=== PATIENT | female | born 1995 | race Two or more races ===

== ENCOUNTER 2025-07-07 13:12 | Emergency (ER) | payer MEDICAID, SELFPAY ==
--- NOTE | 2025-07-07 | XR_ITS ---
Examination: MRI lumbar spine without contrast Date and time of exam: July 07, 2025, 1640 hrs. Indications: Lower back pain beginning 3 days ago extending to the legs with numbness in lower extremities Technique: Multiple MRI axial and sagittal sections lumbar spine. Sagittal T2-weighted images, TR 3500, TE 118 T1 weighted transverse sections, TR 688 T8.5, T2-weighted sagittal sections T1 weighted sagittal sections TR 621, TE 30 T2 axial sections, TR 4, 190, TE 84. Findings: Adequate alignment lumbar vertebral bodies on the lateral view No lumbar fracture. Disc desiccation L4-L5. No spondylolisthesis. L5-S1 no disc protrusion L4-L5 9 mm right paracentral disc protrusion displacing the right L5 nerve root and contiguous with the left L5 nerve root, indenting the thecal sac More cephalad levels unremarkable Chronic mild wedging T12, T11, T10. Impression: L4-L5 large, 9 mm, right paracentral disc protrusion displacing the right L5 nerve root and contiguous with the left L5 nerve root
[2025-07-07 13:27] VITALS: BP 144/97; PULSE 87; RESP 20; TEMP 36.8; O2SAT 98
--- NOTE | 2025-07-07 13:33 | PD.EDRME ---
Rapid Medical Screening Exam E Arrival date/time: 07/07/25 13:12 29-year-old female with no known medical history presents to the emergency room with a chief complaint of lumbar back pain x 3 days. Patient states she is having numbness to her lower extremities, worsening pain when ambulating, and will wake up soiled with urine overnight I have greeted and performed a focused initial assessment of this patient. A comprehensive ED assessment and evaluation of the patient, analysis of all test results, and completion of the medical decision making process will be conducted by additional ED providers. Chief Complaint: Back Pain/Injury Time Seen by Provider: 07/07/25 13:24 Vital signs: Vital Signs Temperature 98.3 F 07/07/25 13:27 Pulse Rate 87 07/07/25 13:27 Respiratory Rate 20 07/07/25 13:27 Blood Pressure 144/97 H 07/07/25 13:27 Pulse Oximetry (%) 98 07/07/25 13:27 Oxygen Delivery Method Room Air 07/07/25 13:27 Vital signs reviewed by provider: Yes
[2025-07-07 14:26] LABS: HCG Qualitative,Urine Negative
[2025-07-07 14:41] LABS: Basophils # (Auto) 0.1 Thou/mm3 (0.0-0.2); Basophils % (Auto) 1 % (0-2.5); Eosinophils # (Auto) 0.3 Thou/mm3 (0.0-0.5); Eosinophils % (Auto) 3 % (0-10); Hematocrit 40.2 % (36.0-46.0); Hemoglobin 12.9 g/dL (12.0-16.0); Immature Granulocytes Auto 0.03 Thou/mm3 (0.00-0.00); Lymphocytes # (Auto) 2.7 Thou/mm3 (1.0-4.8); Lymphocytes % (Auto) 25 % (10-50); Mean Corpuscular HGB Conc 32.1 g/dl (31.0-37.0); Mean Corpuscular Hemoglobin 24.9 pg (25.0-35.0); Mean Corpuscular Volume 78 fL (80-100); Monocytes # (Auto) 0.5 Thou/mm3 (0.0-0.8); Monocytes % (Auto) 4 % (0-12); Neutrophils # (Auto) 7.4 Thou/mm3 (1.8-7.7); Neutrophils % (Auto) 68 % (37-80); Nucleated Red Blood Cell # 0.00 Thou/mm3 (0.00-0.00); Nucleated Red Blood Cell % 0 /100 WBC (0); Platelet Count 330 Thou/mm3 (140-440); RDW Standard Deviation 41.7 fL (36.4-46.3); Red Blood Count 5.18 Miln/mm3 (4.00-5.20); White Blood Count 10.9 Thou/mm3 (3.6-11.0)
[2025-07-07 14:56] LABS: Alanine Aminotransferase 10 U/L (10-49); Albumin, Serum 4.5 gm/dL (3.5-5.0); Albumin/Globulin Ratio 1.5 (1.2-2.2); Alkaline Phosphatase 99 U/L (46-116); Anion Gap 12 (7-16); Aspartate Amino Transferase 14 U/L (0-34); BUN/Creatinine Ratio 13 Ratio (12-20); Bilirubin,Total 0.2 mg/dL (0.3-1.2); Blood Urea Nitrogen 8 mg/dL (9-23); Calcium 9.2 mg/dL (8.3-10.6); Calcium (Corrected) 9.2 mg/dL (8.5-10.1); Carbon Dioxide 24.8 mMol/L (20.0-31.0); Chloride 105 mMol/L (98-107); Creatinine (Component) 0.6 mg/dL (0.6-1.3); Estimated Creatinine Clearance 176.6 mL/min (>60); Globulin 3.1 gm/dL (2.3-3.5); Glucose 96 mg/dL (74-106); Osmolality,Calculated 281 (275-295); Potassium 3.7 mMol/L (3.4-5.1); Sodium 142 mMol/L (136-145); Total Protein 7.6 gm/dL (5.7-8.2); eGFR > 60 See Note
--- NOTE | 2025-07-07 18:07 | EDNOTE_ITS ---
ED General RME/HPI General Chief complaint: Back Pain/Injury Stated complaint: LOWER BACK PAIN, HEAD PAIN, DIZZY Time Seen by Provider: 07/07/25 13:24 Arrival date/time: 07/07/25 13:12 CC: Back pain HPI the patient has had progressive worsening back pain in the low back and now states that she has some minor weakness in the in the legs. No prior history of similar events. Patient also includes numbness in this. Patient states she is followed up by rheumatology her primary care doctor. Patient states she originally was 400 pounds and is now down to 285 secondary to gastric bypass which she is working on getting modified. Patient is awake alert oriented ambulating without complication no other complaints at this time. Patient states that she is no longer hypertensive or diabetic and has been manage through weight loss. Patient is animated with direct eye contact. RME / HPI RME / HPI narrative: 07/07/25 13:12 29-year-old female with no known medical history presents to the emergency room with a chief complaint of lumbar back pain x 3 days. Patient states she is having numbness to her lower extremities, worsening pain when ambulating, and will wake up soiled with urine overnight I have greeted and performed a focused initial assessment of this patient. A comprehensive ED assessment and evaluation of the patient, analysis of all test results, and completion of the medical decision making process will be conducted by additional ED providers. Related Data Allergies Allergy/AdvReac Type Severity Reaction Status Date / Time No Known Allergies Allergy Verified 07/07/25 13:16 Review of Systems Review of Systems Narrative Review of Systems: GEN: No fever, no chills, no weight loss EYES: No discharge, no visual changes, no pain HEENT: No ear pain, no congestion, no sore throat PULM: No shortness of breath, no cough, no congestion CV: No chest pain, no dyspnea on exertion, no palpitations GI: No nausea, no vomiting, no diarrhea, no pain, no constipation : No frequency, no urgency, no dysuria MUSC/SKEL: No joint pain, + back pain SKIN: No rash PSYCH: No hallucinations, no depression HEME/LYMPH: No easy bleeding or bruising tendencies NEURO: No weakness, no headache Past Medical History Past Medical History RESPIRATORY: Negative Respiratory Disorders Social History SMOKING STATUS: Never smoker ED Exam Narrative Physical exam: [General: Morbidly obese not in any acute distress Head normocephalic HEENT: Within acceptable limits Neck is supple nontender Chest equal chest rise nontender to palpation Respiratory: Clear to auscultation no wheezes crackles or rubs CV: Rate rhythm is regular no murmurs rubs or clicks Abdomen is distended secondary to body habitus soft nontender no masses positive bowel sounds all 4 quadrants Back: No tenderness in the thoracic and lumbar spine to 4 with palpation. No CVA tenderness no spinous process tenderness from cervical spine thoracic and lumbar spine Skin: Intact no petechiae rash induration ulceration or crepitus Extremities: Moving all extremity against resistance cap refill less than 2 seconds neurosensory intact. Patient is ambulating without complication good lower extremity strength neurosensory intact observed ambulating without limp or requiring a support system. Neuro: Awake alert oriented x3 Glascow coma 15 no focal deficits] Course Quality Measures none Orders Category Date Time Status MRI Screening NOW Care 07/07/25 13:34 Active MR lumbar spine wo con Stat Exams 07/07/25 Completed CBC Stat Lab 07/07/25 14:08 Completed CMP [Comprehensive Metabolic Panel] Stat Lab 07/07/25 14:08 Completed HCG Qualitative,Urine Stat Lab 07/07/25 14:00 Completed Vital Signs Vital signs: Vital Signs Temperature 98.3 F 07/07/25 13:27 Pulse Rate 87 07/07/25 13:27 Respiratory Rate 20 07/07/25 13:27 Blood Pressure 144/97 H 07/07/25 13:27 Pulse Oximetry (%) 98 07/07/25 13:27 Oxygen Delivery Method Room Air 07/07/25 13:27 Discharge Plan Plan Patient Disposition: HOME (Self Care) Patient condition on transfer: Stable Prescriptions/Referrals Referrals: Aaliyah Plummer MD [Primary Care Provider] - In 1 week Pablo Sullivan MD [Physician, Orthopedics] - In 1 week Problem List Clinical Impression: Low back pain Patient/Caregiver Discharge Instructions Education Materials: Self-Care for Low Back Pain Additional Instructions: The industry segment specialist as listed above as you may know somebody who specializes in back pains. If there is a worsening of symptoms return to the emergency room otherwise follow-up with a graphics specialist or your rheumatoid specialist. Print Language: Martiniquais Stand Alone Forms: [facility] Award Info., Work/School Release, Patient Portal Info Letter PA/ASSISTANT TERMINAL MANAGER Supervising Physician TACOS Supervising Physician: Servando BOWENP MDM Clinical Information Provided by patient Medical Records Reviewed [facility] Meds/Rx Considered, not Ordered None Labs/Rad/Tests considered, not Ordered None Chronic Illness/Social Conditions Add or document further as needed: Morbid obesity diabetes hypertension EKG EKG not done Lab Interpretation Labs: interpreted by me Lab(s) interpretation(s): CBC shows no acute leukocytosis anemia thrombocytopenia no left shift. CMP shows no significant electrolyte imbalances renal impairment transaminitis or T. bili elevation. Urine hCG is negative Imaging Imaging interpretation: interpreted by me Provider imaging interpretation(s): MRI shows L4-5 large of 9 mm right paracentral disc protrusion at displacing the right L5 nerve root and continuous with the left L5 nerve root. Radiology reports / interpretation(s): At this time I have low index of suspicion the patient has a epidural abscess given the patient has no leukocytosis the MRI shows no mass. And patient has no focal deficits. Patient is reassured me that she continues to work on losing additional weight. Diagnosis Differential diagnosis: Epidural abscess disc protrusion lumbar fracture Dispositon Disposition: Discharge Home
== END 2025-07-07 18:27 | disposition home or self-care (01) ==
PROVIDERS: Nurse Practitioner Family; Emergency Provider Emergency Medicine; PCP Internal Medicine
DX: M51.26 Other intervertebral disc displacement, lumbar region (principal)
CPT/HCPCS: 36415; 72148; 80053; 81025; 85025; 99284

== ENCOUNTER 2025-08-15 19:10 | Emergency (ER) | payer MEDICAID, SELFPAY ==
[2025-08-15 19:12] VITALS: BMI 51.4
--- NOTE | 2025-08-15 19:29 | EDNOTE_ITS ---
ED Psych RME/HPI General Chief Complaint: Overdose Stated Complaint: SI, TOOK 8 GABAPENTIN 300MG CAP AT 1840 Time Seen by Provider: 08/15/25 19:17 Arrival date/time: 08/15/25 19:10 RME / HPI RME / HPI Narrative: See MDM for Dr. Escobedo's HPI Documentation. Related Data Allergies Allergy/AdvReac Type Severity Reaction Status Date / Time No Known Allergies Allergy Verified 08/15/25 19:12 Review of Systems Review of Systems Systems Reviewed: All systems reviewed, normal except as documented Past Medical History Past Medical History PSYCHO/SOCIAL: Positive Psychiatric Problems (Borderline Personality Disorder), Bipolar Disorder, Depression, Anxiety and Post Traumatic Stress Disorder Social History SMOKING STATUS: Never smoker ED Exam Narrative Physical exam: See [facility] for Dr. Escobedo's Physical Exam Documentation. Course Quality Measures none Orders Category Date Time Status 179 Psychiatric Hold NOW Care 08/15/25 19:45 Ordered EKG (ED ONLY) *Do not use* NOW Care 08/15/25 19:52 Completed Miscellaneous Nursing Order NOW Care 08/15/25 19:40 Active EKG (ED Only) Stat Exams 08/15/25 19:52 Draft Acetaminophen Stat Lab 08/15/25 20:01 Completed Alcohol, Blood Medical Stat Lab 08/15/25 20:01 Completed Bilirubin,Direct Stat Lab 08/15/25 20:01 Completed CBC Stat Lab 08/15/25 20:01 Completed CK [Creatine Kinase] Stat Lab 08/15/25 20:01 Completed CMP [Comprehensive Metabolic Panel] Stat Lab 08/15/25 20:01 Completed Drug Screen,Urine Stat Lab 08/15/25 19:53 Completed HCG,Qualitative Serum Stat Lab 08/15/25 20:01 Completed Magnesium Stat Lab 08/15/25 20:01 Completed Salicylate Stat Lab 08/15/25 20:01 Completed TSH [Thyroid Stimulating Hormone] Stat Lab 08/15/25 20:01 Completed Troponin I Stat Lab 08/15/25 20:01 Completed UA, C/S IF [Urinalysis, C/S if Indicated] Stat Lab 08/15/25 19:53 Completed Referral Professional Golf Tournament Player NOW 08/15/25 19:38 Active Vital Signs Vital signs: Vital Signs Temperature 98.2 F 08/15/25 20:06 Pulse Rate 74 08/15/25 20:06 Respiratory Rate 18 08/15/25 20:06 Blood Pressure 158/91 H 08/15/25 20:06 Pulse Oximetry (%) 100 08/15/25 20:06 Psych MDM Narrative MDM Narrative:: This section includes all my notes and documentations, including HPI, PE, and ED course. Mick Escobedo MD HPI: 29 y/o female with Hx of BPD, MDD, Anxiety, PTSD, and Borderline Personality Disorder here after taking 8 pills of gabapentin 300 mg about an hour ago, at 6:40 PM. Wanted to hurt herself. No thoughts of hurting other people. No claudio lucinations. No other complaints. ROS: All negative except as documented in HPI. Physical Exam: General: Alert and oriented. No acute distress. Eyes: Conjunctivae and lids clear. EOMI. PERRL. ENT: No nasal congestion. Neck: Supple. Heart: RRR. Lungs: No respiratory distress. Good air movement. No rhonchi, wheezing, rales. Abdomen: Soft and nontender. Legs: No clubbing, cyanosis, edema. Skin: Warm and dry. Neuro: Alert and oriented X 3. Cranial Nerves II-XII grossly intact. No peripheral motor deficits. I reviewed all diagnostic test results: My interpretation of the EKG: NSR (70 bpm) with no ST-T changes. Blood tests and urine tests unremarkable. At this point, diagnoses include: Suicidal Ideation Overdose by Ingestion Patient placed on 1799 hold. Entered order for evaluation by our ED nanny caregiver. Patient is medically cleared for further psychiatric care. At 6 AM on 08/16/2025, the care of the patient was transferred to Dr. MEYER. Mick Escobedo MD Patient data External records reviewed:: [facility] previous records (Reviewed prior ED records from 07/07/25. Patient was seen for Low back pain.) Clinical information provided by:: patient Social determinants that could affect healthcare access:: mental health Patient has the following chronic illnesses:: Borderline Personality Disorder, Bipolar Disorder, Depression, Anxiety and Post Traumatic Stress Disorder How is presenting disease/condition affected by chronic disease/condition?: exacerbated by Evaluation data The following diagnostics were reviewed and interpreted by me:: lab results and EKG tracing(s) (My interpretation of the EKG: NSR (70 bpm) with no ST-T changes. Mick Escobedo MD) Lab and/or radiology exams considered but not ordered:: None Interpretation Summary: I reviewed all diagnostic test results: My interpretation of the EKG: NSR (70 bpm) with no ST-T changes. Blood tests and urine tests unremarkable. Medications / Prescriptions Medications or Prescriptions considered but not ordered:: None Medication administrations:: None Consultations Consultation(s) initiated? (list below): No Diagnosis Psych Differential Diagnosis: acute psychosis, chronic schizophrenia, suicidal ideation, bipolar disorder, depression, drug-induced psychotic disorder and acute anxiety Most likely diagnosis given after review of the tests above:: Suicidal Ideation Overdose by Ingestion Admission Indicated Admission indicated?: not indicated Explain why admission is indicated or not indicated:: No psychiatric service at this facility. Admission Request Was there a request for admission?: No Disposition Plan Disposition Plan: other (specify) (At 6 AM on 08/16/2025, the care of the patient was transferred to Dr. MEYER.) Discharge Plan Problem List Clinical Impression: Suicidal ideation, Overdose by ingestion Patient/Caregiver Discharge Instructions Print Language: Malian
--- NOTE | 2025-08-15 19:52 | EKG_ITS ---
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
[2025-08-15 20:01] VITALS: BP 158/91; O2SAT 100
[2025-08-15 20:06] VITALS: BP 158/91; PULSE 74; RESP 18; TEMP 36.8; O2SAT 100
[2025-08-15 20:08] LABS: Basophils # (Auto) 0.1 Thou/mm3 (0.0-0.2); Basophils % (Auto) 1 % (0-2.5); Eosinophils # (Auto) 0.3 Thou/mm3 (0.0-0.5); Eosinophils % (Auto) 2 % (0-10); Hematocrit 42.3 % (36.0-46.0); Hemoglobin 13.4 g/dL (12.0-16.0); Immature Granulocytes Auto 0.05 Thou/mm3 (0.00-0.00); Lymphocytes # (Auto) 3.6 Thou/mm3 (1.0-4.8); Lymphocytes % (Auto) 25 % (10-50); Mean Corpuscular HGB Conc 31.7 g/dl (31.0-37.0); Mean Corpuscular Hemoglobin 24.5 pg (25.0-35.0); Mean Corpuscular Volume 77 fL (80-100); Monocytes # (Auto) 0.5 Thou/mm3 (0.0-0.8); Monocytes % (Auto) 4 % (0-12); Neutrophils # (Auto) 10.1 Thou/mm3 (1.8-7.7); Neutrophils % (Auto) 69 % (37-80); Nucleated Red Blood Cell # 0.00 Thou/mm3 (0.00-0.00); Nucleated Red Blood Cell % 0 /100 WBC (0); Platelet Count 354 Thou/mm3 (140-440); RDW Standard Deviation 42.9 fL (36.4-46.3); Red Blood Count 5.47 Miln/mm3 (4.00-5.20); White Blood Count 14.6 Thou/mm3 (3.6-11.0)
[2025-08-15 20:20] LABS: HCG,Qualitative Serum Negative
[2025-08-15 20:34] LABS: Acetaminophen < 2.0 mcg/mL (10.0-20.0); Alanine Aminotransferase 14 U/L (10-49); Albumin, Serum 5.3 gm/dL (3.5-5.0); Albumin/Globulin Ratio 1.5 (1.2-2.2); Alcohol, Blood Medical < 3.0 mg/dL (0-10.0); Alkaline Phosphatase 105 U/L (46-116); Anion Gap 14 (7-16); Aspartate Amino Transferase 18 U/L (0-34); BUN/Creatinine Ratio 9 Ratio (12-20); Bilirubin,Direct 0.1 mg/dL (0.0-0.3); Bilirubin,Total 0.4 mg/dL (0.3-1.2); Blood Urea Nitrogen 6 mg/dL (9-23); Calcium 10.0 mg/dL (8.3-10.6); Calcium (Corrected) 10.0 mg/dL (8.5-10.1); Carbon Dioxide 21.2 mMol/L (20.0-31.0); Chloride 104 mMol/L (98-107); Creatine Kinase 59 U/L (34-171); Creatinine (Component) 0.7 mg/dL (0.6-1.3); Estimated Creatinine Clearance 150.3 mL/min (>60); Globulin 3.5 gm/dL (2.3-3.5); Glucose 84 mg/dL (74-106); Magnesium 1.9 mg/dL (1.6-2.6); Osmolality,Calculated 274 (275-295); Potassium 3.9 mMol/L (3.4-5.1); Salicylate < 3.0 mg/dL; Sodium 139 mMol/L (136-145); Thyroid Stimulating Hormone 2.17 uIU/mL (0.55-4.78); Total Protein 8.8 gm/dL (5.7-8.2); Troponin I < 0.002 ng/mL (0.0-0.045); eGFR > 60 See Note
[2025-08-15 20:37] LABS: Collection Type, Urine Clean Catch
[2025-08-15 20:54] LABS: Amphetamine/Methamp Scrn,U Negative (Negative); Barbiturate Screen,Urine Negative (Negative); Benzodiazepines Screen,Urine Negative (Negative); Benzoylecgonine Screen, Ur Negative (Negative); Fentanyl Screen,Urine Negative (Negative); Opiate Screen,Urine Negative (Negative); THC Screen,Urine Negative (Negative)
[2025-08-15 21:12] LABS: Bacteria,Urine Rare; Bilirubin,Urine Negative (Negative); Blood,Urine Negative (Negative); Clarity,Urine Turbid (Clear/Hazy); Color,Urine Yellow (Lt Yel-Yel); Culture Indicated,Urine Not Indicated; Glucose, Urine Negative (Negative); Ketones,Urine Negative (Negative); Leukocyte Esterase,Urine Positive (Negative); Nitrite,Urine Negative (Negative); PH,Urine 5.5 (5.0-7.0); Protein,Urine Trace (Neg - Trace); RBC,Urine 2 /hpf (0-3); Specific Gravity,Urine 1.029 (1.001-1.035); Squamous Epithelial Cell,Urine 12 /hpf (0-5); Urobilinogen,Urine Negative mg/dL (0.0-1.0); WBC,Urine 5 /hpf (0-5)
[2025-08-16] VITALS: BP 129/78; PULSE 76; RESP 20; TEMP 36.9; O2SAT 94
[2025-08-16 00:03] VITALS: BP 129/78; PULSE 78; RESP 27; O2SAT 98
[2025-08-16 06:29] VITALS: BP 113/73; PULSE 74; PULSE 75; RESP 16; RESP 22; TEMP 36.7; O2SAT 96
--- NOTE | 2025-08-16 06:35 | PD.EDADDENDU ---
Emergency Room Addendum Addendum Narrative: 0600: Care assumed from Dr. Escobedo, the previous shift emergency physician. Past medical, surgical, social and family history reviewed. Vitals and home medications reviewed. I will assume the care of the patient at this time, pending mental health evaluation. Please refer to the emergency department record for history and examination from initial visit.? Physical exam by me shows patient under no acute distress at this time. 0838: Mental health placed the patient on 5150 hold, pending placement. 0938: Patient accepted to [facility].
--- NOTE | 2025-08-16 06:48 | PC.NURSE ---
pt slept most of the night. has been calm cooperative and pleasant. 1:1 sitter continues.
[2025-08-16 08:00] VITALS: BP 152/91; PULSE 98; RESP 19; TEMP 37; O2SAT 100
--- NOTE | 2025-08-16 08:02 | PC.CC ---
Patient is a 29 year-old female who was brought in by significant other Ish Quiros for intentional overdose of 8 Gabapentin pills. Patient was placed on a 1799 at 1945 on 08/15/2025. Bharathi made [id number] contact with patient to complete assessment. HOSPICE PATIENT CARE SECRETARY introduced self, role, and reason for assessment. HOSPICE PATIENT CARE SECRETARY disclosed limits of confidentiality as well. Patient appeared alert and oriented to self, place, and situation. Patient made appropriate eye contact with this speech writer. Patient appeared to be depressed with a flat affect and disinhibited. Patient?s attitude was pleasant and cooperative. No signs of delusions, paranoia or hallucinations. Patient confirmed information on demographics and reports to living with her significant other Ish Quiros . Patient reports yesterday she felt a buildup of emotions which she is unable to express which led her to having suicidal ideations. She disclosed her significant other attempted to take her to the hospital earlier in the day but she was resistant to getting out of the vehicle and went back home. However, patient disclosed that when her significant other was driving her to the other hospital she grabbed the steering wheel intentionally as she did not want to go to the hospital. Patient reports when she got home she took 4 pills and then took an additional 4 and this is when she told her significant other she needed help because she wanted to consume the entire bottle. Patient reports she has mental health diagnosis of Bipolar I, Borderline Personality Disorder, PTSD, Generalized Anxiety Disorder, and Depression. Patient is not connected to outpatient mental health services and has not been on her psychotropic medication for a year. At the time of encounter patient continues to endorse suicidal ideation with multiple different plans (drowning or suffocating herself) with intention. Patient denied homicidal ideation, visual and auditory hallucinations. Patient?s toxicology was negative. Her Sagle Screening was High Risk. Patient is unable to provide a viable safety plan. Upon clinical consultation with [facility], Meghan Martinez patient will be placed on a 5150-hold for Danger to Self and 179 will be credited. [facility] provided 5150-hold advisement to patient and provided Patient?s Rights Handbook. Tesha MARQUEZ provided update to medical staff of 5150-hold and plan to transfer patient to an [facility] Facility.
--- NOTE | 2025-08-16 09:09 | PC.CC ---
Alida with [facility] provided accepting information. Dr. Tello, [address]. TALENT ACQUISITION PROJECT MANAGERTesha provided accepting information to medical team and patient. TALENT ACQUISITION PROJECT MANAGER to arrange transportation.
[2025-08-16 10:04] VITALS: BP 134/79; PULSE 75; RESP 19; TEMP 37; O2SAT 98
--- NOTE | 2025-08-16 10:39 | PC.NURSE ---
patient picked up for tranfer to accepting facility
== END 2025-08-16 10:49 ==
LOC: SERX 20:13
PROVIDERS: Emergency Provider Emergency Medicine; PCP Internal Medicine
DX: T42.6X2A Poisoning by other antiepileptic and sedative-hypnotic drugs, intentional self-harm, initial encounter (principal); F60.3 Borderline personality disorder
CPT/HCPCS: 36415; 80053; 80307; 80320; 80329; 81001; 82248; 82550; 83735; 84443; 84484; 84703; 85025; 93005; 96127; 99284; G0480

== ENCOUNTER 2025-09-03 10:28 | Emergency (ER) | payer MEDICAID, SELFPAY ==
[2025-09-03 10:35] VITALS: BP 150/89; PULSE 81; RESP 18; TEMP 36.6; O2SAT 97; BMI 52.3
--- NOTE | 2025-09-03 11:05 | PD.EDRME ---
Rapid Medical Screening Exam [facility] Arrival date/time: 09/03/25 10:28 Chief Complaint: Dizziness Time Seen by Provider: 09/03/25 11:03 Vital signs: Vital Signs Temperature 97.9 F 09/03/25 10:35 Pulse Rate 81 09/03/25 10:35 Respiratory Rate 18 09/03/25 10:35 Blood Pressure 150/89 H 09/03/25 10:35 Pulse Oximetry (%) 97 09/03/25 10:35 Oxygen Delivery Method Room Air 09/03/25 10:35 RM Narrative: 29 year old female with history bipolar disorder and anxiety presents to the ED for evaluation of tingling and numbness sensation today. Patient reports feeling a tingling sensation throughout, her face feeling numb, and lower part of legs feeling numb. No other complaints reported. Exam: No focal neurological findings. Clinical Impression: Paresthesia
[2025-09-03 11:30] LABS: Collection Type, Urine Clean Catch
[2025-09-03 11:33] LABS: Basophils # (Auto) 0.1 Thou/mm3 (0.0-0.2); Basophils % (Auto) 1 % (0-2.5); Eosinophils # (Auto) 0.3 Thou/mm3 (0.0-0.5); Eosinophils % (Auto) 4 % (0-10); Hematocrit 36.4 % (36.0-46.0); Hemoglobin 11.5 g/dL (12.0-16.0); Immature Granulocytes Auto 0.02 Thou/mm3 (0.00-0.00); Lymphocytes # (Auto) 2.5 Thou/mm3 (1.0-4.8); Lymphocytes % (Auto) 30 % (10-50); Mean Corpuscular HGB Conc 31.6 g/dl (31.0-37.0); Mean Corpuscular Hemoglobin 24.3 pg (25.0-35.0); Mean Corpuscular Volume 77 fL (80-100); Monocytes # (Auto) 0.3 Thou/mm3 (0.0-0.8); Monocytes % (Auto) 4 % (0-12); Neutrophils # (Auto) 5.2 Thou/mm3 (1.8-7.7); Neutrophils % (Auto) 62 % (37-80); Nucleated Red Blood Cell # 0.00 Thou/mm3 (0.00-0.00); Nucleated Red Blood Cell % 0 /100 WBC (0); Platelet Count 349 Thou/mm3 (140-440); RDW Standard Deviation 43.8 fL (36.4-46.3); Red Blood Count 4.73 Miln/mm3 (4.00-5.20); White Blood Count 8.3 Thou/mm3 (3.6-11.0)
[2025-09-03 11:44] LABS: HCG Qualitative,Urine Negative
[2025-09-03 11:46] LABS: Bilirubin,Urine Negative (Negative); Blood,Urine Negative (Negative); Clarity,Urine Clear (Clear/Hazy); Color,Urine Lt-Yellow (Lt Yel-Yel); Culture Indicated,Urine Not Indicated; Glucose, Urine Negative (Negative); Ketones,Urine Negative (Negative); Leukocyte Esterase,Urine Negative (Negative); Nitrite,Urine Negative (Negative); PH,Urine 6.0 (5.0-7.0); Protein,Urine Negative (Neg - Trace); RBC,Urine < 1 /hpf (0-3); Specific Gravity,Urine 1.017 (1.001-1.035); Squamous Epithelial Cell,Urine 5 /hpf (0-5); Urobilinogen,Urine Negative mg/dL (0.0-1.0); WBC,Urine 2 /hpf (0-5)
[2025-09-03 11:52] LABS: Alanine Aminotransferase 13 U/L (10-49); Albumin, Serum 4.5 gm/dL (3.5-5.0); Albumin/Globulin Ratio 2.0 (1.2-2.2); Alkaline Phosphatase 86 U/L (46-116); Anion Gap 10 (7-16); Aspartate Amino Transferase 16 U/L (0-34); BUN/Creatinine Ratio 12 Ratio (12-20); Bilirubin,Total 0.2 mg/dL (0.3-1.2); Blood Urea Nitrogen 6 mg/dL (9-23); Calcium 8.6 mg/dL (8.3-10.6); Calcium (Corrected) 8.6 mg/dL (8.5-10.1); Carbon Dioxide 27.5 mMol/L (20.0-31.0); Chloride 106 mMol/L (98-107); Creatinine (Component) 0.5 mg/dL (0.6-1.3); Estimated Creatinine Clearance 212.8 mL/min (>60); Globulin 2.3 gm/dL (2.3-3.5); Glucose 98 mg/dL (74-106); Magnesium 1.8 mg/dL (1.6-2.6); Osmolality,Calculated 282 (275-295); Potassium 3.5 mMol/L (3.4-5.1); Sodium 143 mMol/L (136-145); Total Protein 6.8 gm/dL (5.7-8.2); eGFR > 60 See Note
--- NOTE | 2025-09-03 15:21 | EDNOTE_ITS ---
<Statement entered by Stephanie Mcmanus MD - 09/03/25 16:03> I, Stephanie Mcmanus MD, have reviewed the history, exam, and assessment of the patient. I have evaluated the patient independently and agree with the plan of care documented by [ ]. All diagnostic studies were reviewed and discussed. I confirm the diagnosis as documented by the Resident. I was present during the Medical Decision Making for this patient. The patient's plan of care was created between myself and the Resident and consistent with our discussion of the patient's case. ED Dizzyness RME/HPI General Chief Complaint: Dizziness Stated Complaint: DIZZY, DISORIENTED, FACE NUMB, DIFF. FOCUSING Time Seen by Provider: 09/03/25 11:03 Arrival date/time: 09/03/25 10:28 RME / HPI RME / HPI Narrative: CC: Dizzines Patient is a 29-year-old female with a past medical history of migraine headache, history of bipolar, anxiety, history of pinched nerve, obesity on Zepbound, history of gastric sleeve who presented to the emergency room via private vehicle with chief complaint of dizziness and tingling sensation upper and lower extremity bilaterally. Per patient she follows topically neurology and her history of migraines. CBC CMP and UA ordered Exam: No focal neurological findings. Impression: Paresthesia Related Data Previous Rx's ?Medication ?Instructions ?Recorded ferrous sulfate 325 mg (65 mg 325 mg PO Q OTHER DAY An emia 2 09/03/25 iron) tablet weeks #7 tabs Allergies Allergy/AdvReac Type Severity Reaction Status Date / Time No Known Allergies Allergy Verified 09/03/25 10:31 Review of Systems Review of Systems Narrative Review of Systems: General appearance: NO weight change, Yes fatigue, yes Dizziness, Tingling sensation bilaterally upper and lower extremtiy, NO weakness, NO fever, NO chills, NO night sweats, No cough Skin: NO rash, NO itching, NO sores, NO moles HEENT: NO Trauma, NO nausea, NO vomiting, NO visual changes, NO blurry vision, NO double vision, NO tinnitus, NO vertigo, NO ear discharge, NO rhinorrhea, NO stuffiness, NO sneezing, NO allergy, NO epistaxis. NO Hoarseness, NO sore throat, NO swollen neck. Cardiac: NO Palpitations, NO dyspnea on exertion, NO orthopnea, NO paroxysmal nocturnal dyspnea, NO edema Respiratory: NO Shortness of Breath, NO Wheezing, NO Cough, NO Sputum, NO hemoptysis GI:NO appetite, NO nausea, NO vomiting, NO dysphagia, NO changes in bowel frequency, NO stool color, NO diarrhea, NO constipation, NO hemetemesis, NO hemorrhoids, NO melena, NO hematechezia, NO abdominal pain, NO jaundice Renal: NO frequency, NO hesitancy, NO urgency, NO hematuria, NO nocturia, NO incontinence MSK: NO muscle weakness, NO gout, NO arthritis, NO muscle stiffness Neuro: history headaches, NO tremors, NO weakness, NO paralysis, NO seizures, NO loss of consciousness, NO numbness. Hem: NO anemia, NO easy bruising/bleeding, NO petechiae, NO purpura Endo: NO heat/cold intolerance, NO excessive sweating, NO polyuria, NO polydipsia, NO polyphagia, NO thyroid problems, NO diabetes Pysch: NO mood, NO anxiety, NO depression ED Exam Narrative Physical exam: General Appearance: Alert & Oriented X3, well-nourished female who is lying in bed in no acute distress, No rashes HEENT: Skull symmetrical and atraumatic. Conjunctivae pink and moist. Pupils equal, round, reactive to light and accommodation (PERRL). External ear without lesion or discharge. Cardio: Normal Rate and Rhythm with S1 and S2 heart sounds. No murmurs or extra heart sounds auscultated. No bruits on carotid auscultation. No peripheral edema or cyanosis. Lungs: Symmetric with good expansion. Chest and back non-tender. Breath sounds vesicular without crackles, wheezing or rhonchi Abdomen: Non-tender, Non-distended, Normal Reactive Bowel Sounds Neuro: Alert, cooperative, oriented to person, place, and time. Speech clear. CN grossly intact. Upper motor strength 5/5 and Lower motor strength 5/5. Sensation intact. Course Quality Measures none Orders Category Date Time Status CBC Stat Lab 09/03/25 11:12 Completed Comprehensive Metabolic Panel Stat Lab 09/03/25 11:12 Completed HCG Qualitative,Urine Stat Lab 09/03/25 11:20 Completed Magnesium Stat Lab 09/03/25 11:12 Completed UA, C/S IF [Urinalysis, C/S if Indicated] Stat Lab 09/03/25 11:20 Completed Vital Signs Vital signs: Vital Signs Temperature 97.9 F 09/03/25 10:35 Pulse Rate 81 09/03/25 10:35 Respiratory Rate 18 09/03/25 10:35 Blood Pressure 150/89 H 09/03/25 10:35 Pulse Oximetry (%) 97 09/03/25 10:35 Oxygen Delivery Method Room Air 09/03/25 10:35 Dizziness Patient data External records reviewed:: [facility] previous records Clinical information provided by:: patient Social determinants that could affect healthcare access:: none Patient has the following chronic illnesses:: History of migraine headache, history of bipolar, anxiety, history of pinched nerve, obesity on Zepbound, history of gastric sleeve How is presenting disease/condition affected by chronic disease/condition?: uneffected by Evaluation data The following diagnostics were reviewed and interpreted by me:: lab results Lab and/or radiology exams considered but not ordered:: None Interpretation Summary: Patient noted to have anemia to have microcytic anemia, patient denied cadence bleeding but does have heavy periods. Patient will be started on iron tablets and follow up with primary car provider. Medications / Prescriptions Medications or Prescriptions considered but not ordered:: none Medication administrations:: none Consultations Consultation(s) initiated? (list below): No Diagnosis Dizziness Differential Diagnosis: benign paroxysmal positional vertigo, acute vestibular neuronitis and other (Anemia ) Most likely diagnosis given after review of the tests above:: Microcytic Anemia likely secondary to iron deficiency given history of menorrhagia and leading to generalized weakness and dizziness. - The patient's plan was discussed with attending Dr. Marietta Hunt MD PGY2 Internal Medicine Admission Indicated Admission indicated?: not indicated Admission Request Was there a request for admission?: No Disposition Plan Disposition Plan: Discharge Discharge Attestation Discharge Attestation: The patient and all family members were given an opportunity to ask questions and understood the discharge instructions. Discharge instructions specifically effects, indications for sooner follow up or return to the emergency department, and the expected course of current diagnosis. Patient condition: Stable Discharge Plan Plan Patient Disposition: HOME (Self Care) Patient condition on transfer: Stable Health Concerns: Instructions: -Please take iron tablet every other day for your anemia. Please monitor for constipation as this is a side effect. -Please follow up with your primary care provider within one week of discharge -If your symptoms worsen,please seek immediate medical attention and return to your nearest emergency room -If you do not have a primary care provider, you may follow up at [facility] at [address], [place] [address], Prescriptions/Referrals Prescriptions/Med Rec: New ferrous sulfate 325 mg (65 mg iron) tablet 325 mg PO Q OTHER DAY 14 Days Qty: 7 0RF Referrals: Aaliyah Plummer MD [Primary Care Provider] - In 1 week Problem List Clinical Impression: Anemia Patient/Caregiver Discharge Instructions Print Language: Kosovan Stand Alone Forms: [facility] Award Info., Patient Portal Info Letter
--- NOTE | 2025-09-03 15:52 | PC.NURSE ---
CALLED PATIENT TO OLD TRIAGE TO GIVE DISCHARGE PAPERWORK. NO ANSWER @ [phone]
--- NOTE | 2025-09-03 16:33 | PC.NURSE ---
NO ANSWER FROM PATIENT AT TRIAGE @ [phone] X2.
--- NOTE | 2025-09-03 16:53 | PC.NURSE ---
CALLED PT FOR DISCHARGE IN LOBBY AND OUTSIDE; NO ANSWER; THIRD CALL. PT ELOPED.
== END 2025-09-03 16:53 | disposition home or self-care (01) ==
PROVIDERS: Emergency Provider Emergency Medicine; PCP Internal Medicine
DX: R42 Dizziness and giddiness (principal); E66.9 Obesity, unspecified; F31.9 Bipolar disorder, unspecified; D50.9 Iron deficiency anemia, unspecified
CPT/HCPCS: 36415; 80053; 81001; 81025; 83735; 85025; 99282

== ENCOUNTER 2025-10-22 10:36 | Emergency (ER) | payer MEDICAID, SELFPAY ==
--- NOTE | 2025-10-22 11:19 | XR_ITS ---
Examination: OB Transvaginal ultrasound of the pelvis, complete Technique: Transvaginal sonographic images pelvis performed using millard scale imaging Exam date and time: October 22, 2025, 1154 hours INDICATIONS: Vaginal bleeding and pelvic cramping beginning 3 days ago. FINDINGS: Uterus 10.2 cm intrauterine gestation pole 2.3 cm corresponds to 9 weeks 0 days gestational age Cardiac motion 189 bpm, technologist describes internal echoes in the gestational sac which may relate to technique, given the patient's size Ovaries obscured by bowel gas. Impression: Viable intrauterine gestation 9 weeks 0 days, suggest short-term follow-up as clinically warranted
[2025-10-22 11:20] VITALS: BP 140/84; PULSE 77; RESP 16; TEMP 36.8; O2SAT 100; BMI 52.7
[2025-10-22 12:53] LABS: Basophils # (Auto) 0.0 Thou/mm3 (0.0-0.2); Basophils % (Auto) 0 % (0-2.5); Eosinophils # (Auto) 0.2 Thou/mm3 (0.0-0.5); Eosinophils % (Auto) 2 % (0-10); Hematocrit 37.5 % (36.0-46.0); Hemoglobin 12.2 g/dL (12.0-16.0); Immature Granulocytes Auto 0.03 Thou/mm3 (0.00-0.00); Lymphocytes # (Auto) 2.2 Thou/mm3 (1.0-4.8); Lymphocytes % (Auto) 24 % (10-50); Mean Corpuscular HGB Conc 32.5 g/dl (31.0-37.0); Mean Corpuscular Hemoglobin 25.1 pg (25.0-35.0); Mean Corpuscular Volume 77 fL (80-100); Monocytes # (Auto) 0.3 Thou/mm3 (0.0-0.8); Monocytes % (Auto) 4 % (0-12); Neutrophils # (Auto) 6.3 Thou/mm3 (1.8-7.7); Neutrophils % (Auto) 69 % (37-80); Nucleated Red Blood Cell # 0.00 Thou/mm3 (0.00-0.00); Nucleated Red Blood Cell % 0 /100 WBC (0); Platelet Count 289 Thou/mm3 (140-440); RDW Standard Deviation 43.4 fL (36.4-46.3); Red Blood Count 4.86 Miln/mm3 (4.00-5.20); White Blood Count 9.1 Thou/mm3 (3.6-11.0)
[2025-10-22 13:45] LABS: Alanine Aminotransferase 10 U/L (10-49); Albumin, Serum 4.7 gm/dL (3.5-5.0); Albumin/Globulin Ratio 1.5 (1.2-2.2); Alkaline Phosphatase 84 U/L (46-116); Anion Gap 14 (7-16); Aspartate Amino Transferase 17 U/L (0-34); BUN/Creatinine Ratio 10 Ratio (12-20); Bilirubin,Total 0.3 mg/dL (0.3-1.2); Blood Urea Nitrogen < 5 mg/dL (9-23); Calcium 9.0 mg/dL (8.3-10.6); Calcium (Corrected) 9.0 mg/dL (8.5-10.1); Carbon Dioxide 19.2 mMol/L (20.0-31.0); Chloride 105 mMol/L (98-107); Creatinine (Component) 0.5 mg/dL (0.6-1.3); Estimated Creatinine Clearance 211.8 mL/min (>60); Globulin 3.2 gm/dL (2.3-3.5); Glucose 94 mg/dL (74-106); Osmolality,Calculated 272 (275-295); Potassium 4.2 mMol/L (3.4-5.1); Sodium 138 mMol/L (136-145); Total Protein 7.9 gm/dL (5.7-8.2); eGFR > 60 See Note
--- NOTE | 2025-10-22 14:34 | EDNOTE_ITS ---
ED OB Contraction Preg RMI/HPI General Chief complaint: Vaginal Bleeding Stated complaint: VAGINAL SPOTTING, CRAMPING, PREG 9WKS Time Seen by Provider: 10/22/25 10:51 Arrival date/time: 10/22/25 10:36 30-year-old female presents to the Emergency Department complaint of vaginal bleeding and cramping patient working approximate 9 weeks patient ports no fever nausea vomiting no dysuria Limitations: no limitations Related Data Allergies Allergy/AdvReac Type Severity Reaction Status Date / Time No Known Allergies Allergy Verified 10/22/25 10:38 Review of Systems Review of Systems Systems Reviewed: All systems reviewed, normal except as documented Constitutional Constitutional: Reports system reviewed and no additional complaints, except as documented, Denies fever(s) and Denies headache(s) Eyes Eyes: Reports system reviewed and no additional complaints, except as documented and Denies blurry vision ENT Ears, Nose, Mouth, and Throat: Reports system reviewed and no additional c omplaints, except as documented, Denies headache(s), Denies nasal congestion and Denies nasal discharge Cardiovascular Cardiovascular: Reports system reviewed and no additional complaints, except as documented, Denies chest pain and Denies dyspnea Respiratory Respiratory: Reports system reviewed and no additional complaints, except as documented, Denies chest congestion, Denies cough and Denies dyspnea Gastrointestinal Gastrointestinal: Reports system reviewed and no additional complaints, except as documented and Denies abdominal pain Genitourinary Genitourinary: Reports system reviewed and no additional complaints, except as documented and Reports abnormal vaginal bleeding Integumentary/Breasts Skin/Breast: Reports system reviewed and no additional complaints, except as documented and Denies rash Neurologic Neurologic: Reports system reviewed and no additional complaints, except as documented, Reports as per HPI and Denies headache(s) Past Medical History Past Medical History PSYCHO/SOCIAL: Positive Psychiatric Problems (Borderline Personality Disorder), Bipolar Disorder, Depression, Anxiety and Post Traumatic Stress Disorder Social History SMOKING STATUS: Never smoker ED Exam General Limitations: Present no limitations General appearance: Present alert and in no apparent distress Head Head exam: Present atraumatic Eye Eye exam: Present normal appearance, PERRL and EOMI ENT ENT exam: Present normal exam, normal oropharynx and mucous membranes moist Neck Neck exam: Present normal inspection, full ROM and trachea midline Chest Chest inspection: Present normal inspection and symmetric chest wall rise Respiratory Respiratory exam: Present normal lung sounds bilaterally Cardiovascular Cardiovascular exam: Present regular rate, normal rhythm and normal heart sounds Abdominal Exam Abdominal exam: Present soft and normal bowel sounds; Absent distention, tenderness, guarding, rebound or rigidity Extremities Exam Extremities exam: Present normal inspection and full ROM Back Exam Back exam: Present normal inspection and full ROM Neurological Exam Neurological exam: Present alert, oriented X3 and CN II-XII intact Psychiatric Psychiatric exam: Present normal affect and normal mood Skin Skin exam: Present warm, dry, intact and normal color Course Quality Measures none Orders Category Date Time Status US OB transvaginal Stat Exams 10/22/25 11:19 Completed ABO/RH Type Stat Lab 10/22/25 12:35 Completed Beta HCG,Quantitative Stat Lab 10/22/25 12:35 Completed CBC Stat Lab 10/22/25 12:35 Completed Comprehensive Metabolic Panel Stat Lab 10/22/25 12:35 Completed Vital Signs Vital signs: Vital Signs Temperature 98.2 F 10/22/25 11:20 Pulse Rate 77 10/22/25 11:20 Respiratory Rate 16 10/22/25 11:20 Blood Pressure 140/84 H 10/22/25 11:20 Pulse Oximetry (%) 100 10/22/25 11:20 Oxygen Delivery Method Room Air 10/22/25 11:20 O2 saturation 100% room air within limits Vaginal Bleeding MDM Narrative MDM Narrative: 30-year-old female presents to the Emergency Department complaint of vaginal bleeding and cramping patient working approximate 9 weeks patient ports no fever nausea vomiting no dysuria Clinically patient well-appearing does not appear look toxic no acute distress Lab work and imaging obtained no acute emergent findings noted Patient discharged home in no distress to follow-up with ORDER PULLER doctor in the next 24 to 48 hours and for any worsening symptoms to return to the ER immediately Patient data External records reviewed:: [facility] previous records Clinical information provided by:: patient Social determinants that could affect healthcare access:: none Patient has the following chronic illnesses:: None How is presenting disease/condition affected by chronic disease/condition?: no chronic disease Evaluation data The following diagnostics were reviewed and interpreted by me:: lab results and radiology exam(s) Lab and/or radiology exams considered but not ordered:: Labs and radiology obtained Interpretation Summary: Reviewed by me Medications / Prescriptions Medications or Prescriptions considered but not ordered:: Given no meds Medication administrations:: No meds Consultations Consultation(s) initiated? (list below): No Diagnosis Vaginal Bleeding Differential Diagnosis: missed , threatened and dysfunctional uterine bleeding Most likely diagnosis given after review of the tests above:: Dysfunction uterine bleeding Admission Indicated Admission indicated?: not indicated Admission Request Was there a request for admission?: No Disposition Plan Disposition Plan: Discharge Discharge Attestation Discharge Attestation: The patient and all family members were given an opportunity to ask questions and understood the discharge instructions. Discharge instructions specifically effects, indications for sooner follow up or return to the emergency department, and the expected course of current diagnosis. Patient condition: Stable Discharge Plan Plan Patient Disposition: HOME (Self Care) Discharge Disposition comment: Stable Prescriptions/Referrals Referrals: Pricila Owen NP [Primary Care Provider] - In 1 week Problem List Clinical Impression: Vaginal bleeding during Patient/Caregiver Discharge Instructions Education Materials: Bleeding During Early Additional Instructions: Please follow up with your primary care doctor in the next 24-48hrs for any worsening symptoms return here immediately Print Language: Sri Lankan Stand Alone Forms: [employer] Award Info., Patient Portal Info Letter PA/CLINICAL PROGRAMMER Supervising Physician MAI/SUKUMAR Supervising Physician: Dr. patterson
== END 2025-10-22 15:12 | disposition home or self-care (01) ==
PROVIDERS: Nurse Practitioner Primary Care; Emergency Provider Family Medicine; PCP Nurse Practitioner
DX: O20.9 Hemorrhage in early pregnancy, unspecified (principal); Z3A.09 9 weeks gestation of pregnancy
CPT/HCPCS: 36415; 76817; 80053; 84702; 85025; 86900; 86901; 99283